=== PATIENT | female | born 1955 | race Caucasian/White ===

== ENCOUNTER 2019-09-01 09:52 | Outpatient (CLI) | payer MEDICARE, OTHER ==
[2019-09-01 12:25] LABS: BILIRUBIN,URINE NEGATIVE (NEGATIVE); GLUCOSE, URINE (UA) NEGATIVE (NEGATIVE); KETONES,URINE (UA) NEGATIVE (NEGATIVE); LEUKOCYTE ESTERASE, URINE NEGATIVE (NEGATIVE); NITRITE,URINE NEGATIVE (NEGATIVE); OCCULT BLOOD,URINE NEGATIVE (NEGATIVE); PROTEIN,URINE NEGATIVE (NEGATIVE); UROBILINOGEN,URINE 0.2 (NORMAL) E.U./dL (NORMAL)
[2019-09-01 12:28] LABS: CLARITY,URINE CLEAR (CLEAR)
[2019-09-01 13:00] LABS: HB2 TOTAL 15.6 g/dL; HEMOGLOBIN A1C 0.96 g/dL; HEMOGLOBIN A1C % 7.8 % (4.6-6.2)
[2019-09-01 13:23] LABS: ALBUMIN 3.5 g/dL (3.2-5.5); ALBUMIN/GLOBULIN RATIO 1.1 (1.0-2.2); ALKALINE PHOSPHATASE 92 IU/L (42-121); ALT ALANINE AMINOTRANSFERASE 32 IU/L (10-60); AST ASPARTATE AMINOTRANSFERASE 30 IU/L (10-42); BILIRUBIN,TOTAL 0.5 mg/dL (0.2-1.0); BUN - BLOOD UREA NITROGEN 9 mg/dL (6-20); CALCIUM 8.7 mg/dL (8.5-10.3); CARBON DIOXIDE - CO2 22 mmol/L (21-32); CHLORIDE 103 mmol/L (101-111); CHOL/HDL RATIO 4.2 (<4.4); CHOLESTEROL 196 mg/dL; CREATININE 0.6 mg/dL (0.4-1.0); GFR - MDRD 101 (>89); GLUCOSE 186 mg/dL (70-100); HDL CHOLESTEROL 47 mg/dL; LDL CHOLESTEROL,CALCULATED 109 mg/dL; LDL/HDL RATIO 2.3 (<4.4); SODIUM 134 mmol/L (135-145); TOTAL PROTEIN 6.8 g/dL (6.7-8.2); VLDL CHOLESTEROL 40 mg/dL
[2019-09-02 12:19] LABS: HEPATITIS C ANTIBODY NON-REACTIVE (NON-REACTIVE)
== END 2019-09-01 23:59 | disposition home or self-care (01) ==
LOC: LAB.WCP 09:52
PROVIDERS: ATTEND Family Medicine
DX: E66.01 Morbid (severe) obesity due to excess calories (principal); R32 Unspecified urinary incontinence; Z11.59 Encounter for screening for other viral diseases
CPT/HCPCS: 36415; 80053; 80061; 81001; 81003; 83036; 83721; 86803; 87086

== ENCOUNTER 2019-12-09 12:48 | Outpatient (CLI) | payer MEDICARE, OTHER ==
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
== END 2019-12-09 12:49 | disposition home or self-care (01) ==
LOC: SC 12:48
PROVIDERS: ATTEND Internal Medicine Pulmonary Disease
DX: G47.33 Obstructive sleep apnea (adult) (pediatric) (principal); E66.01 Morbid (severe) obesity due to excess calories; Z68.42 Body mass index [BMI] 45.0-49.9, adult
CPT/HCPCS: 99203; G0463; 99212

== ENCOUNTER 2020-01-05 10:15 | Outpatient (CLI) | payer MEDICARE, OTHER ==
[2020-01-05 13:50] LABS: CALCIUM 8.8 mg/dL (8.5-10.3); CREATININE 0.6 mg/dL (0.4-1.0)
[2020-01-05 14:20] LABS: HB2 TOTAL 14.7 g/dL; HEMOGLOBIN A1C 0.74 g/dL; HEMOGLOBIN A1C % 6.8 % (4.6-6.2)
== END 2020-01-05 23:59 | disposition home or self-care (01) ==
LOC: LAB.WCP 10:15
PROVIDERS: ATTEND Family Medicine
DX: E11.9 Type 2 diabetes mellitus without complications (principal)
CPT/HCPCS: 36415; 80048; 83036

== ENCOUNTER 2020-06-08 17:55 | Outpatient (CLI) | payer MEDICARE, OTHER ==
[2020-06-08 18:31] LABS: BASOPHILS # (AUTO) 0.1 10^3/uL (0.0-0.1); BASOPHILS % (AUTO) 0.7 %; EOSINOPHILS # (AUTO) 0.2 10^3/uL (0.0-0.7); EOSINOPHILS % (AUTO) 2.4 %; HGB - HEMOGLOBIN 14.6 g/dL (12.0-16.0); LYMPHOCYTES # (AUTO) 2.1 10^3/uL (1.5-3.5); LYMPHOCYTES % (AUTO) 30.5 %; MEAN CORPUSCULAR HEMOGLOBIN 32.1 pg (27.0-31.0); MEAN CORPUSCULAR VOLUME 94.5 fL (81.0-99.0); MONOCYTES # (AUTO) 0.6 10^3/uL (0.0-1.0); MONOCYTES % (AUTO) 8.6 %; NEUTROPHILS # (AUTO) 3.9 10^3/uL (1.5-6.6); NEUTROPHILS % (AUTO) 57.7 %; PLT - PLATELET COUNT 247 10^3/uL (130-450); RED BLOOD COUNT 4.55 10^6/uL (4.20-5.40); RED CELL DISTRIBUTION WIDTH 12.2 % (12.0-15.0); WHITE BLOOD COUNT 6.8 x10^3/uL (4.8-10.8)
[2020-06-08 19:01] LABS: ALBUMIN 3.8 g/dL (3.2-5.5); ALBUMIN/GLOBULIN RATIO 1.1 (1.0-2.2); ALKALINE PHOSPHATASE 83 IU/L (42-121); ALT ALANINE AMINOTRANSFERASE 29 IU/L (10-60); AST ASPARTATE AMINOTRANSFERASE 25 IU/L (10-42); BILIRUBIN,TOTAL 0.5 mg/dL (0.2-1.0); BUN - BLOOD UREA NITROGEN 13 mg/dL (6-20); CALCIUM 9.1 mg/dL (8.5-10.3); CARBON DIOXIDE - CO2 23 mmol/L (21-32); CHLORIDE 104 mmol/L (101-111); CHOL/HDL RATIO 4.5 (<4.4); CHOLESTEROL 200 mg/dL; CREATININE 0.6 mg/dL (0.4-1.0); GLUCOSE 123 mg/dL (70-100); HDL CHOLESTEROL 44 mg/dL; LDL CHOLESTEROL,CALCULATED 114 mg/dL; LDL/HDL RATIO 2.6 (<4.4); SODIUM 137 mmol/L (135-145); TOTAL PROTEIN 7.3 g/dL (6.7-8.2); VLDL CHOLESTEROL 42 mg/dL
[2020-06-08 19:30] LABS: CREATININE,URINE 71.2 mg/dL
[2020-06-08 20:48] LABS: HEMOGLOBIN A1c% 6.7 % (4.27-6.07)
== END 2020-06-08 17:56 | disposition home or self-care (01) ==
LOC: LAB 17:55
PROVIDERS: ATTEND Family Medicine
DX: E11.9 Type 2 diabetes mellitus without complications (principal)
CPT/HCPCS: 36415; 80053; 80061; 82043; 82570; 83036; 83721; 84443; 85025

== ENCOUNTER 2020-07-19 08:00 | Outpatient (CLI) | payer MEDICARE, OTHER | END 2020-07-19 23:59 | disposition home or self-care (01) | LOC: LAB.R 08:00 | PROVIDERS: ATTEND Family Medicine | DX: N39.0 Urinary tract infection, site not specified (principal) | CPT/HCPCS: 87086; 87181 ==

== ENCOUNTER 2021-01-10 10:59 | Outpatient (CLI) | payer MEDICARE, OTHER ==
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
== END 2021-01-10 11:00 | disposition home or self-care (01) ==
LOC: SC 10:59
PROVIDERS: ATTEND Internal Medicine Pulmonary Disease
DX: G47.33 Obstructive sleep apnea (adult) (pediatric) (principal); E66.01 Morbid (severe) obesity due to excess calories; Z68.42 Body mass index [BMI] 45.0-49.9, adult
CPT/HCPCS: 99212; G0463

== ENCOUNTER 2021-02-09 13:55 | Outpatient (CLI) | payer MEDICARE, OTHER | END 2021-02-09 13:56 | disposition home or self-care (01) | LOC: LAB 13:55 | PROVIDERS: ATTEND Family Medicine | DX: E11.9 Type 2 diabetes mellitus without complications (principal); Z53.9 Procedure and treatment not carried out, unspecified reason | CPT/HCPCS: 80053; 80061; 82043; 82570; 83036; 83721; 84443; 85025; 87086 ==

== ENCOUNTER 2021-06-15 07:10 | Outpatient (CLI) | payer MEDICARE, OTHER ==
[2021-06-15 07:46] LABS: BASOPHILS % (AUTO) 0.7 %; EOSINOPHILS # (AUTO) 0.2 10^3/uL (0.0-0.7); EOSINOPHILS % (AUTO) 2.6 %; HCT - HEMATOCRIT 40.2 % (37.0-47.0); HGB - HEMOGLOBIN 13.5 g/dL (12.0-16.0); LYMPHOCYTES # (AUTO) 1.6 10^3/uL (1.5-3.5); LYMPHOCYTES % (AUTO) 26.1 %; MEAN CORPUSCULAR HGB CONC 33.6 g/dL (32.0-36.0); MEAN CORPUSCULAR VOLUME 95.3 fL (81.0-99.0); MEAN PLATELET VOLUME 9.8 fL (7.9-10.8); MONOCYTES # (AUTO) 0.5 10^3/uL (0.0-1.0); MONOCYTES % (AUTO) 7.4 %; NEUTROPHILS # (AUTO) 3.9 10^3/uL (1.5-6.6); PLT - PLATELET COUNT 244 10^3/uL (130-450); RED BLOOD COUNT 4.22 10^6/uL (4.20-5.40); RED CELL DISTRIBUTION WIDTH 12.8 % (12.0-15.0); WHITE BLOOD COUNT 6.1 x10^3/uL (4.8-10.8)
[2021-06-15 08:03] LABS: CREATININE,URINE 132.2 mg/dL; MICROALBUM/CREATININE RATIO,UR 11.3 ug/mg (<30.0); MICROALBUMIN,URINE 1.5 mg/dL (0-300.0)
[2021-06-15 08:06] LABS: ALBUMIN 3.6 g/dL (3.2-5.5); ALBUMIN/GLOBULIN RATIO 1.1 (1.0-2.2); ALKALINE PHOSPHATASE 69 IU/L (42-121); ALT ALANINE AMINOTRANSFERASE 27 IU/L (10-60); AST ASPARTATE AMINOTRANSFERASE 27 IU/L (10-42); BUN - BLOOD UREA NITROGEN 15 mg/dL (6-20); CALCIUM 9.2 mg/dL (8.5-10.3); CARBON DIOXIDE - CO2 25 mmol/L (21-32); CHLORIDE 103 mmol/L (101-111); CHOLESTEROL 190 mg/dL; CREATININE 0.9 mg/dL (0.4-1.0); GFR - MDRD 63 (>89); GLUCOSE 139 mg/dL (70-100); HDL CHOLESTEROL 38 mg/dL; LDL CHOLESTEROL,CALCULATED 102 mg/dL; LDL/HDL RATIO 2.7 (<4.4); POTASSIUM 3.8 mmol/L (3.5-5.0); SODIUM 138 mmol/L (135-145); TRIGLYCERIDES 248 mg/dL; VLDL CHOLESTEROL 50 mg/dL
[2021-06-15 08:18] LABS: THYROID STIMULATING HORMONE 2.02 uIU/mL (0.34-5.60)
[2021-06-15 10:20] LABS: ESTIMATED AVERAGE GLUCOSE 146 mg/dL (70-100); HEMOGLOBIN A1c% 6.7 % (4.27-6.07)
== END 2021-06-15 07:11 | disposition home or self-care (01) ==
LOC: LAB 07:10
PROVIDERS: ATTEND Family Medicine
DX: I10 Essential (primary) hypertension (principal); E11.9 Type 2 diabetes mellitus without complications
CPT/HCPCS: 36415; 80053; 80061; 82043; 82570; 83036; 83721; 84443; 85025

== ENCOUNTER 2021-07-13 07:50 | Outpatient (CLI) | payer MEDICARE, OTHER ==
--- NOTE | 2021-07-14 07:23 | Mammography Report ---
BILATERAL DIGITAL DIAGNOSTIC MAMMOGRAM 3D/2D: 07/13/2021 CLINICAL: Short term follow up of the left breast, due for bilateral imaging. Comparison is made to exams dated: 02/06/2020 ultrasound, 02/06/2020 mammogram, 09/23/2014 mammogram, and 01/03/2011 mammogram - [facility]. The tissue of both breasts is predominantly fatt y. Prior mass in the left breast at 6 o'clock has been removed. No significant masses, calcifications, or other findings are seen in either breast. IMPRESSION: NEGATIVE There is no mammographic evidence of malignancy. A 1 year screening mammogram is recommended. This exam was interpreted at Station ID: [id number]. NOTE: For mammograms, a report in lay terms will be sent to the patient. Approximately 15% of breast malignancies will not be visualized mammographically. In the management of a palpable breast mass, a negative mammogram must not discourage biopsy of a clinically suspicious lesion. Electronically Signed By: Boby de los santos/ralph:07/13/2021 10:11:12 ACR BI-RADS Category 1: Negative 3341F PARENCHYMAL PATTERN: (F) - The breast(s) demonstrate(s) diffuse fatty replacement. BI-RADS CATEGORY: (1) - 1 RECOMMENDATION: (ANNUAL) - Recommend routine annual screening mammography. [id number] 1 year screening LATERALITY: (B)
== END 2021-07-13 07:51 | disposition home or self-care (01) ==
LOC: DI 07:50
PROVIDERS: ATTEND Family Medicine
DX: R92.8 Other abnormal and inconclusive findings on diagnostic imaging of breast (principal)

== ENCOUNTER 2021-08-25 08:57 | Outpatient (CLI) | payer MEDICARE, OTHER ==
[2021-08-25 09:40] LABS: CALCIUM 9.1 mg/dL (8.5-10.3); CREATININE 0.8 mg/dL (0.4-1.0); POTASSIUM 3.8 mmol/L (3.5-5.0)
[2021-08-25 09:51] LABS: CREATININE,URINE 53.4 mg/dL; MICROALBUM/CREATININE RATIO,UR 5.6 ug/mg (<30.0); MICROALBUMIN,URINE 0.3 mg/dL (0-300.0)
[2021-08-25 13:06] LABS: ESTIMATED AVERAGE GLUCOSE 128 mg/dL (70-100); HEMOGLOBIN A1c% 6.1 % (4.27-6.07)
== END 2021-08-25 08:58 | disposition home or self-care (01) ==
LOC: LAB 08:57
PROVIDERS: ATTEND Family Medicine
DX: E11.9 Type 2 diabetes mellitus without complications (principal)
CPT/HCPCS: 36415; 80048; 82043; 82570; 83036

== ENCOUNTER 2022-04-03 13:31 | Outpatient (CLI) | payer MEDICARE, OTHER ==
[2022-04-03 14:34] VITALS: BP 118/62
--- NOTE | 2022-04-03 14:34 | SLEEP CARE CONSULTATION ---
Information from patient questionnaire entered by Beto Hidalgo. I have reviewed and concur with the information entered by Beto Hidalgo. This document represents the service I personally performed and the decisions made by me, Reina Wall MD, [facility]. History of Present Illness Service Date and Time: 04/03/2022 1331 Previous diagnosis: Very Severe, Obstructive Sleep Apnea-Hypopnea Syndrome AHI: 67.4 Reason for follow up: annual (LAST SEEN 01/19) Equipment type: CPAP (RESMED) Equipment obtained from: [employer] Mask style: Full face Prior sleep studies: Yes Year and Where: 2016 - ;1998 - and several others since then Type of Sleep Study: Home sleep study HPI additional information: Ms. Mccray returned today for follow up of nasal CPAP therapy. She was diagnosed to have very severe obstructive sleep apnea-hypopnea syndrome. The patient gets her supplies from [employer]. She wears a full face mask and has not tried a ResMed AirTouch F-20 full face mask that was recommended. She reports using the device nightly and all through the night. The compliance report shows usage in 180 nights out of the past 180 nights, averaging 8.3 hours a night. She complained of no particular problem with the device such as soreness on the face, dry nose, epistaxis, nasal congestion or headache. She thinks that the pressure of 14-20 cmH2O is comfortable (for some unknown reason, he machine was set to 18 18 cmH2O at 2 am last night). She still feels tired during the day. The [place] Sleepiness Scale score 13. The average residual AHI is 0.4; and air leak, 2.4 L/min. The 90th percentile pressure is 14.5 cmH2O. Sleep Study - Results Type of Sleep Study: Home sleep study Prior sleep studies: Yes Year and Where: 2016 - ;1998 - and several others since then Subjective Initial [place] Sleepiness Scale score: 14 (in 2019) Current [place] Sleepiness Scale score: 13 (04/03/22) Allergies and Home Medications Drug allergies reviewed: Yes Home medication list reviewed: Yes Allergy and home medication list: Allergies lorcaserin [From [facility]] Allergy (Verified 12/11/19 12:47) Unknown trazodone Allergy (Verified 12/11/19 12:47) Unknown Review of Systems Review of systems same as previous: Yes Physical Exam Vital signs obtained and entered by: GIOVANNI DEAN Blood Pressure: 118/62 (RIGHT WRIST ) Cuff size: wrist Heart Rate: 62 O2 Saturation: 97 Height: 5 ft 3 in Weight: 292 lb Body Mass Index: 51.7 BMI Classification: Morbidly Obese Impression and Plan IMPRESSION: 1. Obstructive Sleep Apnea-Hypopnea Syndrome, very severe, with the patient doing well on nasal CPAP therapy. She has excellent compliance and significant clinical improvement. The current pressure appears effective and comfortable. Overall, she is very satisfied with treatment and plans to continue with it long-term. I also helped her figure out how to operate the mask cleaning device that she bought a year ago. PLAN: 1. AutoCPAP reset to 14 - 20 cmH2O via the modem. 2. Try to lose weight 3. Try ResMed AirTouch F-20 full face mask size small. 4. Return for follow up in a year or earlier if there is any problem. Follow up with Sleep Care in: 1 year Visit Type: In Office Time Spent with Patient (minutes): 20 Provider Statement: I spent 100% of the Face to Face Visit with the patient with greater than 50% spent counseling the patient and coordination of care.
== END 2022-04-03 13:32 | disposition home or self-care (01) ==
LOC: SC 13:31
PROVIDERS: ATTEND Internal Medicine Pulmonary Disease
DX: G47.33 Obstructive sleep apnea (adult) (pediatric) (principal); E66.01 Morbid (severe) obesity due to excess calories; Z68.43 Body mass index [BMI] 50.0-59.9, adult
CPT/HCPCS: 99213; G0463; 99212

== ENCOUNTER 2022-04-26 09:09 | Outpatient (CLI) | payer MEDICARE, OTHER ==
[2022-04-26 09:29] LABS: BASOPHILS % (AUTO) 0.7 %; EOSINOPHILS # (AUTO) 0.1 10^3/uL (0.0-0.7); EOSINOPHILS % (AUTO) 1.9 %; HCT - HEMATOCRIT 41.8 % (37.0-47.0); LYMPHOCYTES # (AUTO) 1.4 10^3/uL (1.5-3.5); LYMPHOCYTES % (AUTO) 23.3 %; MEAN CORPUSCULAR HEMOGLOBIN 31.9 pg (27.0-31.0); MEAN CORPUSCULAR HGB CONC 33.5 g/dL (32.0-36.0); MEAN CORPUSCULAR VOLUME 95.2 fL (81.0-99.0); MEAN PLATELET VOLUME 9.7 fL (7.9-10.8); MONOCYTES # (AUTO) 0.4 10^3/uL (0.0-1.0); MONOCYTES % (AUTO) 7.3 %; NEUTROPHILS # (AUTO) 3.9 10^3/uL (1.5-6.6); NEUTROPHILS % (AUTO) 66.6 %; PLT - PLATELET COUNT 199 10^3/uL (130-450); RED BLOOD COUNT 4.39 10^6/uL (4.20-5.40); RED CELL DISTRIBUTION WIDTH 12.7 % (12.0-15.0); WHITE BLOOD COUNT 5.9 x10^3/uL (4.8-10.8)
[2022-04-26 09:46] LABS: CREATININE,URINE 179.8 mg/dL; MICROALBUMIN,URINE 0.9 mg/dL (0-300.0)
[2022-04-26 09:48] LABS: ALBUMIN 3.5 g/dL (3.2-5.5); ALKALINE PHOSPHATASE 67 IU/L (42-121); ALT ALANINE AMINOTRANSFERASE 29 IU/L (10-60); AST ASPARTATE AMINOTRANSFERASE 24 IU/L (10-42); BUN - BLOOD UREA NITROGEN 17 mg/dL (6-20); CALCIUM 9.1 mg/dL (8.5-10.3); CARBON DIOXIDE - CO2 24 mmol/L (21-32); CHLORIDE 107 mmol/L (101-111); CHOL/HDL RATIO 4.6 (<4.4); CHOLESTEROL 171 mg/dL; CREATININE 0.9 mg/dL (0.4-1.0); GFR - MDRD 62 (>89); GLUCOSE 135 mg/dL (70-100); HDL CHOLESTEROL 37 mg/dL; LDL CHOLESTEROL,CALCULATED 98 mg/dL; LDL/HDL RATIO 2.6 (<4.4); POTASSIUM 3.6 mmol/L (3.5-5.0); SODIUM 140 mmol/L (135-145); TOTAL PROTEIN 7.1 g/dL (6.7-8.2); TRIGLYCERIDES 180 mg/dL; VLDL CHOLESTEROL 36 mg/dL
[2022-04-26 11:41] LABS: ESTIMATED AVERAGE GLUCOSE 154 mg/dL (70-100)
== END 2022-04-26 09:10 | disposition home or self-care (01) ==
LOC: LAB 09:09
PROVIDERS: ATTEND Nurse Practitioner Family
DX: E11.9 Type 2 diabetes mellitus without complications (principal)
CPT/HCPCS: 36415; 80053; 80061; 82043; 82570; 83036; 83721; 85025

== ENCOUNTER 2022-07-12 09:30 | Outpatient (CLI) | payer MEDICARE, OTHER ==
[2022-07-12 10:01] LABS: CALCIUM 9.3 mg/dL (8.5-10.3); CREATININE 0.9 mg/dL (0.4-1.0); POTASSIUM 3.5 mmol/L (3.5-5.0)
[2022-07-12 10:13] LABS: CREATININE,URINE 57.5 mg/dL; MICROALBUM/CREATININE RATIO,UR 10.4 ug/mg (<30.0); MICROALBUMIN,URINE 0.6 mg/dL (0-300.0)
[2022-07-12 10:29] LABS: ESTIMATED AVERAGE GLUCOSE 128 mg/dL (70-100); HEMOGLOBIN A1c% 6.1 % (4.27-6.07)
== END 2022-07-12 09:31 | disposition home or self-care (01) ==
LOC: LAB 09:30
PROVIDERS: ATTEND Family Medicine
DX: E11.9 Type 2 diabetes mellitus without complications (principal)
CPT/HCPCS: 36415; 80048; 82043; 82570; 83036

== ENCOUNTER 2022-10-31 07:02 | Outpatient (CLI) | payer MEDICARE, OTHER ==
[2022-10-31 07:34] LABS: BASOPHILS % (AUTO) 0.8 %; EOSINOPHILS # (AUTO) 0.2 10^3/uL (0.0-0.7); EOSINOPHILS % (AUTO) 3.3 %; HCT - HEMATOCRIT 41.1 % (37.0-47.0); HGB - HEMOGLOBIN 13.7 g/dL (12.0-16.0); LYMPHOCYTES # (AUTO) 1.2 10^3/uL (1.5-3.5); LYMPHOCYTES % (AUTO) 23.5 %; MEAN CORPUSCULAR HEMOGLOBIN 32.7 pg (27.0-31.0); MEAN CORPUSCULAR HGB CONC 33.3 g/dL (32.0-36.0); MEAN CORPUSCULAR VOLUME 98.1 fL (81.0-99.0); MEAN PLATELET VOLUME 10.6 fL (7.9-10.8); MONOCYTES # (AUTO) 0.4 10^3/uL (0.0-1.0); MONOCYTES % (AUTO) 8.6 %; NEUTROPHILS # (AUTO) 3.2 10^3/uL (1.5-6.6); NEUTROPHILS % (AUTO) 63.6 %; PLT - PLATELET COUNT 218 10^3/uL (130-450); RED BLOOD COUNT 4.19 10^6/uL (4.20-5.40); WHITE BLOOD COUNT 5.1 x10^3/uL (4.8-10.8)
[2022-10-31 07:49] LABS: ALBUMIN 3.5 g/dL (3.2-5.5); ALBUMIN/GLOBULIN RATIO 1.1 (1.0-2.2); ALKALINE PHOSPHATASE 63 IU/L (42-121); ALT ALANINE AMINOTRANSFERASE 21 IU/L (10-60); AST ASPARTATE AMINOTRANSFERASE 23 IU/L (10-42); BILIRUBIN,TOTAL 0.7 mg/dL (0.2-1.0); BUN - BLOOD UREA NITROGEN 10 mg/dL (6-20); CARBON DIOXIDE - CO2 26 mmol/L (21-32); CHLORIDE 105 mmol/L (101-111); CHOLESTEROL 160 mg/dL; CREATININE 0.8 mg/dL (0.4-1.0); GFR - MDRD 71 (>89); GLUCOSE 94 mg/dL (70-100); HDL CHOLESTEROL 32 mg/dL; LDL CHOLESTEROL,CALCULATED 98 mg/dL; LDL/HDL RATIO 3.1 (<4.4); SODIUM 140 mmol/L (135-145); TOTAL PROTEIN 6.6 g/dL (6.7-8.2); TRIGLYCERIDES 151 mg/dL; VLDL CHOLESTEROL 30 mg/dL
[2022-10-31 07:55] LABS: MICROALBUM/CREATININE RATIO,UR 4.5 ug/mg (<30.0); MICROALBUMIN,URINE 1.1 mg/dL (0-300.0)
[2022-10-31 10:52] LABS: ESTIMATED AVERAGE GLUCOSE 82 mg/dL (70-100); HEMOGLOBIN A1c% 4.5 % (4.27-6.07)
== END 2022-10-31 07:03 | disposition home or self-care (01) ==
LOC: LAB 07:02
PROVIDERS: ATTEND Nurse Practitioner Family
DX: I10 Essential (primary) hypertension (principal); E11.65 Type 2 diabetes mellitus with hyperglycemia; E66.01 Morbid (severe) obesity due to excess calories
CPT/HCPCS: 36415; 80053; 80061; 82043; 82570; 83036; 83721; 85025

== ENCOUNTER 2022-11-14 06:21 | Outpatient (CLI) | payer MEDICARE, OTHER ==
[2022-11-14 07:20] LABS: CREATININE 0.8 mg/dL (0.4-1.0); POTASSIUM 4.2 mmol/L (3.5-5.0)
== END 2022-11-14 06:22 | disposition home or self-care (01) ==
LOC: DI 06:21 → LAB 06:22
PROVIDERS: ATTEND Physician Assistant
DX: E87.6 Hypokalemia (principal)
CPT/HCPCS: 36415; 80048

== ENCOUNTER 2023-01-09 05:48 | Outpatient (CLI) | payer MEDICARE, OTHER ==
[2023-01-09 06:12] LABS: CALCIUM 9.4 mg/dL (8.5-10.3); CREATININE 0.9 mg/dL (0.4-1.0); POTASSIUM 3.9 mmol/L (3.5-5.0)
== END 2023-01-09 05:49 | disposition home or self-care (01) ==
LOC: LAB 05:48
PROVIDERS: ATTEND Nurse Practitioner Family
DX: I10 Essential (primary) hypertension (principal); E87.6 Hypokalemia
CPT/HCPCS: 36415; 80048

== ENCOUNTER 2023-09-28 08:26 | Outpatient (CLI) | payer MEDICARE, OTHER ==
--- NOTE | 2023-09-28 20:51 | DEXA Report ---
PROCEDURE: Dexa Spine and/or Hip INDICATIONS: POST MENOPAUSAL TECHNIQUE: Dual energy x-ray absorptiometry (DXA) was performed on a Purple Blue Bo System. Regions measur ed are the AP Spine, femoral neck, and if needed forearm. COMPARISON: None FINDINGS: Lumbar Spine: Bone Mineral Density: 1.26 g/cm/cm,T score: 0.7. Left Femoral Neck: Bone Mineral Density: 0.827 g/cm/cm, T score: -1.5. Left Hip: Bone Mineral Density: 0.941 g/cm/cm,T score: -2.5. (T score greater or equal to -1.0: NORMAL) (T score from -1.1 to -2.4: OSTEOPENIA) (T score less than or equal to -2.5 to: OSTEOPOROSIS) Impression: By WHO criteria, this patient has low bone density (osteopenia). Patients with diagnosis of osteoporosis or osteopenia should have regular bone mineral density assess ment. For those eligible for Medicare, routine testing is allowed once every 2 years. Testing frequ ency can be increased for patients who have rapidly progressing disease or for those who are receivin g medical therapy to restore bone mass. Reviewed by: Brian Garcia MD on 09/28/2023 8:50 PM PDT Approved by: Brian Garcia MD on 09/28/2023 8:50 PM PDT Station ID: [id number]
== END 2023-09-28 08:27 | disposition home or self-care (01) ==
LOC: DI 08:26
PROVIDERS: ATTEND Nurse Practitioner Family
DX: M85.88 Other specified disorders of bone density and structure, other site (principal); Z78.0 Asymptomatic menopausal state